=== PATIENT | female | born 1950 | race Caucasian/White ===

== ENCOUNTER 2016-04-15 09:27 | Emergency (ER) | payer OTHER ==
[2013-02-04 12:31] VITALS: BMI 29.6
[~2016-04-15 09:27] MED LIST: ASPIRIN EC81 MG PO; BYSTOLIC5 MG PO; COLACE100 MG; DIABETA1.25 MG; ENABLEX15 MG PO; GLUCOPHAGE500 MG; HUMALOG 30100 UNITS/; LANTUS INSULIN10 ML; MICRO-K10 MEQ PO; ONGLYZA5 MG PO; PRINZIDE 10/12.1 TAB; SKELAXIN800 MG PO; TUMS500 MG; ZANTAC150 MG PO; ZOLOFT100 MG PO; [UNRECOGNIZED DRUG - OTHER]
== END 2016-04-15 12:20 | disposition home or self-care (01) ==
LOC: D.ER 09:27
DX: S69.91XA Unspecified injury of right wrist, hand and finger(s), initial encounter (principal); W01.0XXA Fall on same level from slipping, tripping and stumbling without subsequent striking against object, initial encounter; Y93.89 Activity, other specified; Y92.89 Other specified places as the place of occurrence of the external cause; E11.9 Type 2 diabetes mellitus without complications; Z79.4 Long term (current) use of insulin